=== PATIENT | male | born 1990 | race Hispanic/Latino ===

== ENCOUNTER 2019-02-03 11:37 | Emergency (ER) | payer SELFPAY ==
--- NOTE | 2019-02-03 12:33 | RAD ---
RIGHT FOOT THREE VIEWS: INDICATIONS: Joint pain. FINDINGS: Tarsals appear intact. Metatarsals and phalanges appear intact. MTP joint is unremarkable. IMPRESSION: No evidence of fracture of acute abnormality. No evidence of arthritic change. POS: [facility]
== END 2019-02-03 12:42 | disposition home or self-care (01) ==
LOC: ERS 11:37
DX: M79.674 Pain in right toe(s) (principal)